=== PATIENT | female | born 1985 | race African-American/Black ===

== ENCOUNTER 2022-11-29 15:22 | Inpatient (IN) | payer OTHER, SELFPAY ==
[2022-11-29] VITALS (11 sets, daily range): BP systolic 95–121; BP diastolic 31–50; PULSE 67–98; RESP 11–18; TEMP 36.7–37.3; O2SAT 97–100; BMI 20.4
--- NOTE | ~2022-11-29 | XR_ITS ---
EXAMINATION: XR CHEST CLINICAL INFORMATION: Reason for Exam pain COMPARISON: None TECHNIQUE: 2 views of the chest FINDINGS: Lines and tubes: Radiopaque devices overlying the right midlung and upper lumbar spine per technologist report are external to the patient arise from patient overlying hooded sweatshirt. Clear lungs. No pleural effusion. No pneumothorax. Normal cardiomediastinal silhouette. XR/XR chest 2V IMPRESSION: * Clear lungs.
--- NOTE | ~2022-11-29 | CT_ITS ---
EXAMINATION: CT ABDOMEN AND PELVIS WITH CONTRAST CLINICAL INFORMATION: abd pain, ?lymphoma COMPARISON: None. TECHNIQUE: Multidetector volumetric imaging was performed from the superior aspect of the liver through the pubic symphysis following administration of 85 mL Omnipaque 300 intravenous contrast. Sagittal and coronal reformatted images were obtained on the technologist workstation.. This CT examination was performed using dose optimization techniques as appropriate, variously including the following: *Automated exposure control *Adjustment of mA and/or kV according to patient size (this includes techniques or standardized protocols for targeted exams where dose is matched to indication/reason for exam; i.e. extremities or head) *Use of iterative reconstruction technique DLP: 326 mGy-cm FINDINGS: LUNG BASES: The visualized lung bases are unremarkable. LIVER, GALLBLADDER, AND BILIARY TREE: The liver is normal in size, shape, and attenuation. No focal hepatic lesion or biliary ductal dilatation is present. The gallbladder is unremarkable with no evidence of radiopaque gallstones, gallbladder wall thickening, or obvious pericholecystic inflammatory changes. PANCREAS: Unremarkable. SPLEEN: Unremarkable. ADRENAL GLANDS: Unremarkable. KIDNEYS AND URETERS: The kidneys are normal in size, shape, and attenuation. No hydronephrosis, hydroureter, or calculi seen. No perinephric stranding. BLADDER: Unremarkable. GASTROINTESTINAL TRACT: The small and large bowel are unremarkable. The appendix is nonvisualized. ABDOMINAL WALL: No significant hernia is appreciated. LYMPHOVASCULAR STRUCTURES: Minimal atherosclerotic disease in the distal aorta. Incidental circumaortic left renal vein. I do not appreciate any bulky inguinal, bilateral pelvic sidewall, retroperitoneal, or mesenteric adenopathy PELVIC VISCERA: Physiologic changes OSSEOUS STRUCTURES: Unremarkable. CT/CT abdomen pelvis w IV con IMPRESSION: No acute intra-abdominal process seen.
--- NOTE | 2022-11-29 15:25 | ECG_ITS ---
Test Reason : chest pain Blood Pressure : / mmHG Vent. Rate : 096 BPM Atrial Rate : 096 BPM P-R Int : 130 ms QRS Dur : 074 ms QT Int : 350 ms P-R-T Axes : 058 070 035 degrees QTc Int : 442 ms Normal sinus rhythm Normal ECG No previous ECGs available Referred By: Michael Mead Electronically Signed By:NEFTALI PACHECO
--- NOTE | 2022-11-29 15:27 | ED_ITS ---
[facility] - General Adult General Chief complaint: Chest Pain Stated complaint: CP/SOB, elevated hr, vomiting, loss of weight Time Seen by Provider: 11/29/22 16:00 Source: patient Mode of arrival: ambulatory History of Present Illness HPI narrative: 37-year-old female who presents with known anemia history and denies any history of sickle cell or sickle cell trait and is unsure of any diagnosis of thalassemia, reports heavy menstrual bleeding her entire life but presents with chest pain/shortness of breath/elevated heart rate, nausea/vomiting for 2 weeks, loss of weight. Patient reports she has been tested for HIV previously and is agreeable for retesting today. Related Data Home Medications Medication Instructions Recorded Confirmed multivitamin 1 tab PO DAILY 11/29/22 11/29/22 Allergies Allergy/AdvReac Type Severity Reaction Status Date / Time No Known Allergies Allergy Verified 11/29/22 15:31 [No Known Allergies*] Review of Systems 2 Review of Systems: Pertinent positives and negatives as stated in HPI [facility] Past Medical History Source: nursing notes reviewed Social History Social History Alcohol intake: never Smoked in Last 30 Days: Yes Use of substances other than those prescribed or required for medical reasons: No Advance Directives: No Advance Directives Information Provided: Yes Patient : No Physical Exam ED Vital Signs: Vital Signs - 24 hr 11/29/22 15:27 11/29/22 16:01 11/29/22 17:49 Temperature 98.3 F 99.1 F 98.7 F Pulse Rate 98 83 72 Respiratory Rate 18 16 12 Blood Pressure 121/37 L 115/37 L 100/43 L Pulse Oximetry 97 98 Oxygen Delivery Method Room Air Room Air 11/29/22 18:06 Temperature 98.6 F Pulse Rate 78 Respiratory Rate 16 Blood Pressure 100/46 L Pulse Oximetry Oxygen Delivery Method BMI result Body Mass Index 20.4 VITAL SIGNS: Reviewed. GENERAL: Well developed, well nourished, in no acute distress. HEAD: Normocephalic/atraumatic EYES: PERRLA, EOMI, pale conjunctiva EARS: Ext canals without abnormality NOSE: Nares patent bilateral OROPHARYNX: no oral lesions noted, posterior pharynx clear, pale mucosa NECK: Supple, no adenopathy LUNGS: Normal breath sounds. No adventitious sounds or accessory muscle use. SpO2<98> CARDIOVASCULAR: Regular rate and rhythm without noted murmurs, no JVD or lower extremity edema. ABDOMEN: Soft, non-tender, non-distended with bowel sounds. MUSCULOSKELETAL: No tenderness, deformities, or effusions noted on gross inspection. EXTREMITIES: No cyanosis, clubbing or edema. SKIN: Inspection of the skin reveals no rashes NEUROLOGIC: Alert and oriented x 4. Strength and sensation to light touch were grossly intact x 4. Course Course Course Narrative: RME- 37 year old female presents for evaluation of shortness of breath, chest pain and dizziness. Symptoms started two weeks ago. Plan for cardiac workup. Medications Administered Discontinued Medications Generic Name Dose Route Start Last Admin Trade Name Freq PRN Reason Stop Dose Admin Sodium Chloride 100 mls @ 100 mls/hr 11/29/22 16:23 11/29/22 17:53 Ns IV 11/29/22 17:22 100 mls/hr ONCE ONE Administration Iohexol 100 ml 11/29/22 19:15 11/29/22 19:15 Iohexol 350 Mg/Ml 100 Ml Infus..Btl IV 11/29/22 19:16 85 ml ONCE ONE Administration Medical Decision Making Medical Decision Making MDM Narrative: 37-year-old female with history and clinical presentation, DDX: Acute blood loss anemia felt to be less likely as patient has no reports of recent heavy menstrual bleeding, underlying cell line disorder, although she does have noted leukopenia with the normocytic anemia which argues against the likelihood of sickle cell/thalassemia. all symptoms felt to be directly attributable to patient's profound anemia seen on lab work. I reviewed all investigations and hematologic indices are significant for leukopenia, RDW is significantly elevated but RBCs are depleted and anemia is noted to be normocytic. Absolute neutrophils -1.1 there are nucleated RBCs, absolute reticulocyte count 0.011. Coagulation studies are within normal limits with the exception PTT-22.4. Chemistry indices without BERNARD, potassium within normal limits but renal function is significantly attenuated with a creatinine- 1.36 and GFR -44. T bili-1.[address]-108 and troponin/BNP are grossly within normal limits. HCG is negative. Chest x-ray negative for infiltrate and otherwise my interpretation is in agreement with radiology's impression. LDH 6450, iron panel is not consistent with iron deficiency anemia, vitamin B12/folate is pending, HIV is negative. Patient consented and will receive 4 units, I am consulting with hematology/oncology. 1800: I discussed with Dr Vasquez, who recommends CT scan, and try to transfer to [facility] for suspected acute leukemia. 1914: I discussed the manual differential with Dr. Vasquez and communicated that there were no blasts seen but there was considerable irregularity to the erythrocyte line. She states that patient okay to stay [place] [facility] [place] and workup. 1920: I have discussed the case with inpatient hospitalist who accepts admission and understands that the CT scan of abdomen and pelvis is pending. I have discussed all results and findings with the patient to include are concerns for possible leukemia/lymphoma. Differential Diagnosis Differential Diagnoses: The differential diagnosis associated with the presentation includes Please see the discussion above Admission/Observation Consideration of admission/observation: Escalation of care including admission/observation considered Please see the discussion above Consult Healthcare Provider Management of the patient was discussed with: Skein Washer Please see the discussion above Lab Data MDM Lab Attestation statement: I reviewed the patient's lab results. Please see the discussion above 11/29/22 16:21 11/29/22 15:48 Labs: Lab Results 11/29/22 11/29/22 11/29/22 Range/Units 15:48 16:21 16:23 WBC 2.4 L (4.8-10.8) X10*3/uL RBC 1.21 L (4.20-5.50) X10*6/uL Hgb 3.7 L* 3.6 L* (12.0-16.0) g/dl Hct 11.7 L* 11.2 L* (37.0-47.0) % MCV 96.7 (80.0-98.0) fL MCH 30.6 (27.0-33.0) pg MCHC 31.6 (31.0-35.0) g/dl RDW 35.0 H (11.0-16.0) % Plt Count 171 (160-400) X10*3/uL MPV Not Reportable Immature Gran % (Auto) 1.2 H (0.0-0.4) % Neut % (Auto) 43.5 L (45-73) % Lymph % (Auto) 47.5 H (20-40) % [place] % (Auto) 4.9 (2-11) % Eos % (Auto) 2.5 (0-4) % Baso % (Auto) 0.4 (0-2) % Lymph # (Auto) 1.2 (1.2-4.9) X10*3/uL [place] # (Auto) 0.1 (0.1-1.2) X10*3/uL Eos # (Auto) 0.1 (0.0-0.4) X10*3/uL Baso # (Auto) 0.0 (0.0-0.2) X10*3/uL Abs Immat Gran (auto) 0.03 (0.00-0.03) X10*3/uL Absolute Neuts (auto) 1.1 L (2.0-8.3) x10*3/uL Absolute Nucleated RBC 0.050 H (0.0-0.012) X10*3/uL Nucleated RBC % (auto) 2.0 H (0.0-0.2) /100WBC Neutrophils % (Manual) 44 L (45-73) % Band Neutrophils % 0 L (3-5) % Lymphocytes % (Manual) 50 H (20-40) % Monocytes % (Manual) 2 (2-11) % Eosinophils % (Manual) 2 (0-4) % Basophils % (Manual) 2 (0-2) % Abs Neuts (Manual) 1.1 L (2.0-8.3) X10*3/uL Lymphocytes # (Manual) 1.2 (1.2-4.9) X10*3/uL Nucleated RBCs 1 H (0-0) /100WBC Platelet Estimate SLIGHTLY DECREASED (NORMAL) Plt Morphology Comment NORMAL RBC Morphology NOTED Polychromasia 1+ (0-2) /OIF Basophilic Stippling 1+ (0-2) /OIF Microcytosis 1+ (5-14) /OIF Tear Drop Cells 1+ (0-2) /OIF Ovalocytes 1+ (5-14) /OIF Schistocytes 1+ (0-2) /OIF Smear Tech's Comments VERIFIED Absolute Retic Cancelled 0.011 L Percent Retic Cancelled 1.0 Immature Retic Fraction Cancelled 25.3 H Retic Hgb Equivalent Cancelled 31.6 Haptoglobin Cancelled PT 12.8 (11.1-13.3) SEC INR 1.1 (0.9-1.1) APTT 22.4 L (26.0-36.4) SEC Sodium 136 (135-145) mmol/L Potassium 4.4 (3.3-5.1) mmol/L Chloride 105 (96-108) mmol/L Carbon Dioxide 21 L (22-29) mmol/L Anion Gap 14 (12-20) BUN 14 (9-16) mg/dL Creatinine 1.36 (0.5-1.4) mg/dL Estim Creat Clear Calc 42.7 Estimated GFR 44 Random Glucose 99 (60-115) mg/dL Calcium 10.1 (8.4-10.2) mg/dL Iron 220 H (30-160) mcg/dL TIBC 245 (228-428) mcg/dL % Saturation 90 H (15-50) % Unsat Iron Binding < 25 ug/dL Total Bilirubin 1.4 H (0.0-1.0) mg/dL AST 108 H (5-31) U/L ALT 24 (0-31) U/L Alkaline Phosphatase 37 L (39-117) U/L Lactate Dehydrogenase 6450 H (122-220) U/L Troponin I High Sens < 2.7 (<3.5-17.0) ng/L B-Natriuretic Peptide 11 (<100) pg/mL Total Protein 8.0 (6.5-8.0) g/dL Albumin 4.9 (3.5-5.0) g/dL Lipase 45 (8-78) U/L Beta HCG, Quant < 2 mIU/mL COVID-19 (DEYSI) Negative (Negative) COVID-19 Clin Com See Note HIV 1&2 Ab/P24 Ag 4thGn (Nonreactive) Influenza Type A (PCR) (Negative) Influenza Type B (PCR) (Negative) RSV RNA Qual (PCR) (Negative) SARS-CoV-2 RNA (RT-PCR) (Negative) Blood Type B Positive Antibody Screen NEGATIVE Crossmatch See Detail 11/29/22 Range/Units 18:48 WBC (4.8-10.8) X10*3/uL RBC (4.20-5.50) X10*6/uL Hgb (12.0-16.0) g/dl Hct (37.0-47.0) % MCV (80.0-98.0) fL MCH (27.0-33.0) pg MCHC (31.0-35.0) g/dl RDW (11.0-16.0) % Plt Count (160-400) X10*3/uL MPV Immature Gran % (Auto) (0.0-0.4) % Neut % (Auto) (45-73) % Lymph % (Auto) (20-40) % [place] % (Auto) (2-11) % Eos % (Auto) (0-4) % Baso % (Auto) (0-2) % Lymph # (Auto) (1.2-4.9) X10*3/uL [place] # (Auto) (0.1-1.2) X10*3/uL Eos # (Auto) (0.0-0.4) X10*3/uL Baso # (Auto) (0.0-0.2) X10*3/uL Abs Immat Gran (auto) (0.00-0.03) X10*3/uL Absolute Neuts (auto) (2.0-8.3) x10*3/uL Absolute Nucleated RBC (0.0-0.012) X10*3/uL Nucleated RBC % (auto) (0.0-0.2) /100WBC Neutrophils % (Manual) (45-73) % Band Neutrophils % (3-5) % Lymphocytes % (Manual) (20-40) % Monocytes % (Manual) (2-11) % Eosinophils % (Manual) (0-4) % Basophils % (Manual) (0-2) % Abs Neuts (Manual) (2.0-8.3) X10*3/uL Lymphocytes # (Manual) (1.2-4.9) X10*3/uL Nucleated RBCs (0-0) /100WBC Platelet Estimate (NORMAL) Plt Morphology Comment RBC Morphology Polychromasia /OIF Basophilic Stippling /OIF Microcytosis /OIF Tear Drop Cells /OIF Ovalocytes /OIF Schistocytes /OIF Smear Tech's Comments Absolute Retic Percent Retic Immature Retic Fraction Retic Hgb Equivalent Haptoglobin PT (11.1-13.3) SEC INR (0.9-1.1) APTT (26.0-36.4) SEC Sodium (135-145) mmol/L Potassium (3.3-5.1) mmol/L Chloride (96-108) mmol/L Carbon Dioxide (22-29) mmol/L Anion Gap (12-20) BUN (9-16) mg/dL Creatinine (0.5-1.4) mg/dL Estim Creat Clear Calc Estimated GFR Random Glucose (60-115) mg/dL Calcium (8.4-10.2) mg/dL Iron (30-160) mcg/dL TIBC (228-428) mcg/dL % Saturation (15-50) % Unsat Iron Binding ug/dL Total Bilirubin (0.0-1.0) mg/dL AST (5-31) U/L ALT (0-31) U/L Alkaline Phosphatase (39-117) U/L Lactate Dehydrogenase (122-220) U/L Troponin I High Sens (<3.5-17.0) ng/L B-Natriuretic Peptide (<100) pg/mL Total Protein (6.5-8.0) g/dL Albumin (3.5-5.0) g/dL Lipase (8-78) U/L Beta HCG, Quant mIU/mL COVID-19 (DEYSI) (Negative) COVID-19 Clin Com HIV 1&2 Ab/P24 Ag 4thGn Nonreactive (Nonreactive) Influenza Type A (PCR) NEGATIVE (Negative) Influenza Type B (PCR) NEGATIVE (Negative) RSV RNA Qual (PCR) NEGATIVE (Negative) SARS-CoV-2 RNA (RT-PCR) NEGATIVE (Negative) Blood Type Antibody Screen Crossmatch Independent Interpretation I performed an independent interpretation of an: EKG Interpretation: Normal sinus rhythm, HR-96, no STEMI, KS/QRS/QTC is within normal limits. Radiology Impression Discussion of test interpretation with radiology: I have reviewed the radiologist's reading. Radiologist Impression: Please see the discussion above External Record Review External record reviewed: Outpatient record, Prior outpatient labs, Prior outpatient radiology and Outside ED record Critical Care Time Critical Care Time Critical Care Time: Yes Total Critical Care Time: 45 Attestation: I personally attest to this time spent taking care of the patient. Discharge Plan Discharge Clinical Impression: Severe anemia Patient Disposition: Admitted As Inpatient Prescriptions: No Action multivitamin Tablet 1 tab PO DAILY
[2022-11-29 16:02] LABS: Basophils Percent Auto 0.4 % (0-2); SCAN SMEAR FLAG 1
[2022-11-29 16:04] LABS: Eosinophils Absolute Auto 0.1 X10*3/uL (0.0-0.4); Eosinophils Percent Auto 2.5 % (0-4); Imm Gran Abs Auto 0.03 X10*3/uL (0.00-0.03); Imm Gran Pct Auto 1.2 % (0.0-0.4); Lymphocytes Absolute Auto 1.2 X10*3/uL (1.2-4.9); Lymphocytes Percent Auto 47.5 % (20-40); MANUAL DIFF FLAG SCAN; Mean Corpuscular HGB Conc 31.6 g/dl (31.0-35.0); Mean Corpuscular Hemoglobin 30.6 pg (27.0-33.0); Mean Corpuscular Volume 96.7 fL (80.0-98.0); Monocytes Absolute Auto 0.1 X10*3/uL (0.1-1.2); Monocytes Percent Auto 4.9 % (2-11); Neutrophils Absolute Auto 1.1 x10*3/uL (2.0-8.3); Neutrophils Percent Auto 43.5 % (45-73); Platelet Count 171 X10*3/uL (160-400); Red Blood Count 1.21 X10*6/uL (4.20-5.50)
--- NOTE | 2022-11-29 16:04 | PC.NURSE ---
pt a&ox3, vss, nsr on the manager monitoring. pt comes in today d/t 09/25 non-radiating substernal chest pain, SOB, n/v, cough. sx started about a week ago but worsened last night into this morning. pt states that symptoms worsen upon movement/exertion/inspiration. pt showing no signs of WOB joie. pt able to speak in full, clear sentences w/o difficulty. lung sounds clear throughout. respirations even and unlabored. heart sounds regular and wnl. pt resting comfortably in no apparent distress. pt's children bedside. call robins placed within reach.
[2022-11-29 16:07] LABS: White Blood Count 2.4 X10*3/uL (4.8-10.8)
[2022-11-29 16:09] LABS: Alanine Aminotransferase 24 U/L (0-31); Albumin Level 4.9 g/dL (3.5-5.0); Alkaline Phosphatase 37 U/L (39-117); Anion Gap 14 (12-20); Aspartate Amino Transferase 108 U/L (5-31); Bilirubin Total 1.4 mg/dL (0.0-1.0); Blood Urea Nitrogen 14 mg/dL (9-16); Calcium 10.1 mg/dL (8.4-10.2); Carbon Dioxide 21 mmol/L (22-29); Chloride 105 mmol/L (96-108); Creatinine Clr Calc Pharmacy 42.7; Estimated Glomerular Filt Rate 44; Glucose Random 99 mg/dL (60-115); Hemoglobin 3.7 g/dl (12.0-16.0); Lipase 45 U/L (8-78); PLT ABN DIST 1; Potassium 4.4 mmol/L (3.3-5.1); Sodium 136 mmol/L (135-145)
[2022-11-29 16:10] LABS: Hematocrit 11.7 % (37.0-47.0)
[2022-11-29 16:15] LABS: B Type Natriuretic Peptide 11 pg/mL (<100)
[2022-11-29 16:17] LABS: Troponin-I High Sensitivity < 2.7 ng/L (<3.5-17.0)
[2022-11-29 16:28] LABS: SLIDE REVIEW VERIFIED
--- NOTE | 2022-11-29 16:31 | PC.NURSE ---
provider bedside w/ patient. 20gIV placed in the right AC w/o complications. repeat labs and type & screen sent to lab per provider order d/t original hgb & hct being low. pt aware on plan of care w/ the patient. pt resting comfortably in bed in no apparent distress. pt remains asymptomatic at this time aside from being pale compared to pt's baseline. respirations even and unlabored. call robins placed within reach.
[2022-11-29 16:33] LABS: COVID-19 Test Negative (Negative); IDNOW Serial# 08D9AD1C
[2022-11-29 16:45] LABS: HCG Quantitative < 2 mIU/mL
[2022-11-29 16:47] LABS: Hematocrit 11.2 % (37.0-47.0); Hemoglobin 3.6 g/dl (12.0-16.0)
[2022-11-29 16:54] LABS: INTERNATIONAL NORM RATIO 1.1 (0.9-1.1); Prothrombin Time 12.8 SEC (11.1-13.3)
[2022-11-29 16:58] LABS: Immature Retic Fraction 25.3 % (3.0-15.9); Retic HGB Equivalent 31.6 pg (30.0-35.0); Reticulocytes Absolute 0.011 X10*6/uL (0.026-0.095)
[2022-11-29 17:03] LABS: Partial Thromboplastin Time 22.4 SEC (26.0-36.4)
[2022-11-29 17:29] LABS: Iron 220 mcg/dL (30-160); Percent Iron Saturation 90 % (15-50); Total Iron Binding Capacity 245 mcg/dL (228-428); Unsaturated Iron Binding < 25 ug/dL
[2022-11-29 17:49] LABS: Lactate Dehydrogenase 6450 U/L (122-220)
--- NOTE | 2022-11-29 17:54 | PC.NURSE ---
vss prior to administering blood. blood product initially starting at 1751 per provider order. pt tolerating infusion well. will monitor pt for first 15min.
--- NOTE | 2022-11-29 17:57 | PHA.MEDREC ---
Pharmacy Consult ? Medication Reconciliation Pharmacy has completed the medication reconciliation. Patient only takes multivitamin. Oriana Holliday, WilberD
--- NOTE | 2022-11-29 18:06 | PC.NURSE ---
pt continues to tolerate first 15 min of transfusion. pt denies any SOB/nausea or any other sx at this time. vss and up to date. pt resting comfortably in no apparent distress. respirations even and unlabored.
[2022-11-29 18:40] LABS: Band Neutrophils Percent 0 % (3-5); Basophils Percent Manual 2 % (0-2); Eosinophils Percent Manual 2 % (0-4); Lymphocytes Absolute Manual 1.2 X10*3/uL (1.2-4.9); Lymphocytes Percent Manual 50 % (20-40); Monocytes Percent Manual 2 % (2-11); Neutrophils Absolute Manual 1.1 X10*3/uL (2.0-8.3); Neutrophils Percent Manual 44 % (45-73); Nucleated Red Blood Cells 1 /100WBC (0-0); RBC Morphology NOTED
[2022-11-29 18:41] LABS: Microcytosis 1+ (5-14) /OIF; Schistocytes 1+ (0-2) /OIF; Tear Drop Cells 1+ (0-2) /OIF
[2022-11-29 18:42] LABS: Ovalocytes 1+ (5-14) /OIF
[2022-11-29 18:43] LABS: Polychromasia 1+ (0-2) /OIF
[2022-11-29 18:46] LABS: Basophilic Stippling 1+ (0-2) /OIF
[2022-11-29 18:48] LABS: Platelet Estimate SLIGHTLY DECREASED (NORMAL); Platelet Morphology Comment NORMAL
--- NOTE | 2022-11-29 18:50 | PC.NURSE ---
20g IV placed in the right forearm w/o complications. pt currently going to CT. blood still transfusing.
[2022-11-29] MEDS: iohexoL 350 MG/ML 100 ML INFUS..BTL IV (19:15)
[2022-11-29 19:30] LABS: Influenza A PCR NEGATIVE (Negative); Influenza B PCR NEGATIVE (Negative); Resp Syncy Virus RNA Qual PCR NEGATIVE (Negative); SARS COV2 PCR INHOUSE NEGATIVE (Negative)
[2022-11-29 19:31] LABS: HIV AB/AG Nonreactive (Nonreactive); HIV Num 1 0.05 S/CO (0.00-0.99)
[2022-11-29 19:53] LABS: Folate 7.9 ng/mL (> or = 4.0); Vitamin B12 < 148 pg/mL (200-900)
--- NOTE | 2022-11-29 20:42 | PM.IMHP ---
History of Present Illness Date of Service: 11/29/22 Attending physician on admission: Corey Taylor Chief Complaint: sob, fatigue, weight loss 37-year-old female with history tubular adenoma, menorrhagia, chronic anemia with vitamin B12 deficiency and history of iron deficiency who is a current 1 cigarette per day smoker presents to the ED earlier today for evaluation shortness of breath both at rest and with exertion, chest pain, myalgias, fatigue, lightheadedness ongoing for 2 weeks. She states over the last week she has also been vomiting but denies any hematemesis. She denies any anorexia but states she has been hesitant to eat over the last week due to the vomiting and has lost 7 lb in 1 week. She denies any fevers, chills, abdominal pain, nausea, diarrhea, palpitations, cough, or syncope. On arrival, vital signs stable although blood pressure soft and admission without hypotension. Leukopenia present 2.4, RBC 1.21, H/H 3.6/11.2% with normal MCV and MCH. Platelets 171. No blasts present. Smear path review pending. Absolute reticulocyte count 0.011 with 25.3% immature reticulocyte fraction. Haptoglobin pending. LDH 6450. Renal function normal, electrolyte levels normal. Total bilirubin slightly elevated at 1.4 AST 108, ALT 24, alkaline phosphatase 37. Troponin below detectable limits. BNP 11. Vitamin B12 level below detectable limits. Folate normal at 7.9. Iron level elevated at 220, TIBC 245, 90% saturation . Ferritin level pending. Negative for COVID-19, RSV, influenza. HIV antigen nonreactive. Chest x-ray without abnormality. CT abdomen/pelvis negative for any acute intra abdominal process. EKG shows normal sinus rhythm, rate [address]/T-wave abnormality. In the ED is receiving 4 units packed red blood cells. Review of old records from [facility] show history of severe anemia requiring blood transfusions ([facility]) with subsequent outpatient follow-up with [facility] Hematology. Lab testing negative for von Willebrand'. She did have iron deficiency at that time but was unable to tolerate PO iron and severe vitamin b12 deficiency treated both IM and orally. She did have colonoscopy that showed nearly 4cm tubular adenoma which was removed and repeat colonoscopy in 2019 showed new tubular adenoma. She was advised to continue with surveillance colonoscopies but was lost to follow up. She is not a good historian regarding family cancer history. Review of Systems Review of Systems: General: No fevers, malaise. +weight loss, +fatigue HEENT: No blurred vision, diplopia. No sore throat, nasal congestion, rhinorrhea, sinus pain, ear pain Cardiovascular: +chest pain. No palpitations, or leg edema Respiratory: +sob, +bangura. No wheezing, cough GI: +constipation. No abdominal pain, nausea, vomiting, diarrhea, melena, hematochezia : No dysuria, hematuria, increased urinary frequency, decreased urinary output MSK: No myalgia, back pain Neuro: No headaches, weakness, paresthesias. +lightheadedness Skin: No rashes or lesions [facility] Medical History (Updated 11/29/22 @ 21:04 by LUIS ARMANDO Leach) Tubular adenoma of colon Menorrhagia History of anemia due to vitamin B12 deficiency Social History Alcohol intake: never Smoked in Last 30 Days: Yes Use of substances other than those prescribed or required for medical reasons: No Advance Directives: No Advance Directives Information Provided: Yes Patient : No Meds Allergies Allergy/AdvReac Type Severity Reaction Status Date / Time No Known Allergies Allergy Verified 11/29/22 15:31 [No Known Allergies*] Active Medications: Current Medications Acetaminophen (Acetaminophen 325 Mg Tablet) 650 mg PO Q6H PRN PRN Reason: Pain, Mild (Pain Scale 1-3) Docusate Sodium (Docusate Sodium 100 Mg Capsule) 100 mg PO DAILY PRN PRN Reason: Constipation Multivitamins/Vitamin C (Multivitamin Tablet) 1 tab PO DAILY [facility] Ondansetron HCl (Ondansetron Hcl 4 Mg/2 Ml Vial) 4 mg IVPUSH Q8H PRN PRN Reason: Nausea and Vomiting Sodium Chloride (0.9 % Sodium Chloride Flush 3 Ml Syringe) 3 [facility] Home Medications Medication Instructions Recorded Confirmed Last Taken Type multivitamin 1 tab PO DAILY 11/29/22 11/29/22 Unknown History Physical Exam Vital Signs and Narrative: Vital Signs: Last Vital Signs Temp 98.6 F 11/29/22 18:06 Pulse 78 11/29/22 18:06 Resp 16 11/29/22 18:06 BP 100/46 L 11/29/22 18:06 Pulse Ox 98 11/29/22 16:01 O2 Del Method Room Air 11/29/22 16:01 BMI result Body Mass Index 20.4 Results Labs 11/29/22 16:21 11/29/22 15:48 Labs: Laboratory Results - last 24 hr 11/29/22 11/29/22 11/29/22 15:48 16:21 16:23 MCV 96.7 MCH 30.6 MCHC 31.6 RDW 35.0 H Plt Count 171 MPV Not Reportable Immature Gran % (Auto) 1.2 H Neut % (Auto) 43.5 L Lymph % (Auto) 47.5 H [place] % (Auto) 4.9 Eos % (Auto) 2.5 Baso % (Auto) 0.4 Lymph # (Auto) 1.2 [place] # (Auto) 0.1 Eos # (Auto) 0.1 Baso # (Auto) 0.0 Abs Immat Gran (auto) 0.03 Absolute Neuts (auto) 1.1 L Absolute Nucleated RBC 0.050 H Nucleated RBC % (auto) 2.0 H Neutrophils % (Manual) 44 L Band Neutrophils % 0 L Lymphocytes % (Manual) 50 H Monocytes % (Manual) 2 Eosinophils % (Manual) 2 Basophils % (Manual) 2 Abs Neuts (Manual) 1.1 L Lymphocytes # (Manual) 1.2 Nucleated RBCs 1 H Platelet Estimate SLIGHTLY DECREASED Plt Morphology Comment NORMAL RBC Morphology NOTED Polychromasia 1+ (0-2) Basophilic Stippling 1+ (0-2) Microcytosis 1+ (5-14) Tear Drop Cells 1+ (0-2) Ovalocytes 1+ (5-14) Schistocytes 1+ (0-2) Smear Tech's Comments VERIFIED Absolute Retic Cancelled 0.011 L Percent Retic Cancelled 1.0 Immature Retic Fraction Cancelled 25.3 H Retic Hgb Equivalent Cancelled 31.6 Haptoglobin Cancelled PT 12.8 INR 1.1 APTT 22.4 L Anion Gap 14 Estim Creat Clear Calc 42.7 Estimated GFR 44 Random Glucose 99 Calcium 10.1 Iron 220 H TIBC 245 % Saturation 90 H Unsat Iron Binding < 25 Total Bilirubin 1.4 H AST 108 H ALT 24 Alkaline Phosphatase 37 L Lactate Dehydrogenase 6450 H B-Natriuretic Peptide 11 Total Protein 8.0 Albumin 4.9 Lipase 45 Vitamin B12 Folate Beta HCG, Quant < 2 COVID-19 (DEYSI) Negative COVID-19 Clin Com See Note HIV 1&2 Ab/P24 Ag 4thGn Influenza Type A (PCR) Influenza Type B (PCR) RSV RNA Qual (PCR) SARS-CoV-2 RNA (RT-PCR) Blood Type B Positive Antibody Screen NEGATIVE Crossmatch See Detail 11/29/22 18:48 MCV MCH MCHC RDW Plt Count MPV Immature Gran % (Auto) Neut % (Auto) Lymph % (Auto) [place] % (Auto) Eos % (Auto) Baso % (Auto) Lymph # (Auto) [place] # (Auto) Eos # (Auto) Baso # (Auto) Abs Immat Gran (auto) Absolute Neuts (auto) Absolute Nucleated RBC Nucleated RBC % (auto) Neutrophils % (Manual) Band Neutrophils % Lymphocytes % (Manual) Monocytes % (Manual) Eosinophils % (Manual) Basophils % (Manual) Abs Neuts (Manual) Lymphocytes # (Manual) Nucleated RBCs Platelet Estimate Plt Morphology Comment RBC Morphology Polychromasia Basophilic Stippling Microcytosis Tear Drop Cells Ovalocytes Schistocytes Smear Tech's Comments Absolute Retic Percent Retic Immature Retic Fraction Retic Hgb Equivalent Haptoglobin PT INR APTT Anion Gap Estim Creat Clear Calc Estimated GFR Random Glucose Calcium Iron TIBC % Saturation Unsat Iron Binding Total Bilirubin AST ALT Alkaline Phosphatase Lactate Dehydrogenase B-Natriuretic Peptide Total Protein Albumin Lipase Vitamin B12 < 148 L Folate 7.9 Beta HCG, Quant COVID-19 (DEYSI) COVID-19 Clin Com HIV 1&2 Ab/P24 Ag 4thGn Nonreactive Influenza Type A (PCR) NEGATIVE Influenza Type B (PCR) NEGATIVE RSV RNA Qual (PCR) NEGATIVE SARS-CoV-2 RNA (RT-PCR) NEGATIVE Blood Type Antibody Screen Crossmatch Imaging Radiologist's Impressions: Impressions Chest X-Ray 11/29/22 15:36 IMPRESSION: * Clear lungs. Abdomen/Pelvis CT 11/29/22 19:29 IMPRESSION: No acute intra-abdominal process seen. Assessment and Plan (1) Severe anemia: Status: Acute Plan 37-year-old female with history tubular adenoma, menorrhagia, chronic anemia with vitamin B12 deficiency and history of iron deficiency who is a current 1 cigarette per day smoker admitted for severe hemolytic anemia #Severe hemolytic anemia -Has history chronic vitamin B12 and iron deficiency. Previously following at [facility] hematology -Has chronic menorhhagia but no new acute bleeding. No iron deficiency, rather overloaded. Ferritin pending -LDH 6450, absolute reticulocyte count low -no blasts. CT abdomen/pelvis negative for evidence of lymphoma -Vitamin B12 deficient, defer to Hematology -hematology consult -transfuse 4 units packed red blood cells -follow CBC #Vomiting -etiology unclear, no hematemesis -ondansetron prn #Unintentional weight loss -acute- 7 pounds 1 week -suspect r/t vomiting -Cannot exclude malignany given clinical picture -Hematology consult # history tubular adenoma- >3cm, was on surveillance at [facility] GI -no iron deficiency anemia -consider Gastroenterology consult -outpt follow up DVT prophylaxis- scps, early ambulation Full code Patient requires inpatient stay at least 2 midnights for management of severe hemolytic anemia requiring multiple blood transfusions and expert consultation as well as close monitoring of blood counts and cardiac monitoring Time Spent With Patient Time: Total time managing care of this patient today ____ minutes. Quality Stroke Does the patient have a stroke diagnosis?: No VTE Prior VTE?: No VTE Risk Level:: Medical - moderate - high VTE Device Contraindication: Treatment Not Indicated VTE Drug Contraindication: N/A - Med Ordered
--- NOTE | 2022-11-29 21:33 | PC.NURSE ---
Took over care from Eladio Phoenix, pt a&o, no sob or chest pain at this time.pt tolerating blood transfusion well.
[2022-11-29 21:34] LABS: Ferritin 195 ng/mL (10-122)
--- NOTE | 2022-11-29 23:30 | PC.NURSE ---
This engineering writer assumed care of this Pt at 2300. Pt A&Ox4, sitting up on stretcher, receiving 2nd unit of blood. Pt denies any pain, SOB, CP, or palpitations, reports feeling better then when coming in . SpO2 98% on RA, lung sounds clear.
[2022-11-30] VITALS (8 sets, daily range): BP systolic 100–125; BP diastolic 53–68; PULSE 55–82; RESP 14–100; TEMP 36.3–36.8; O2SAT 100; BMI 21.1
[2022-11-30] MEDS: 0.9 % Sodium Chloride Flush 3 ML SYRINGE IVFLUSH ×2 (01:02→08:07)
--- NOTE | 2022-11-30 02:29 | PC.NURSE ---
3rd unit of blood infusing at this time. Pt denies any CP, SOB, or palpitations, Pt affebrile. Will continue with plan of care.
--- NOTE | 2022-11-30 02:52 | PC.NURSE ---
RN to RN report given to Killian, Pt will be transported to room 460, Pt aware of plan.
[2022-11-30 06:52] LABS: Basophils Percent Auto 0.5 % (0-2); Eosinophils Absolute Auto 0.1 X10*3/uL (0.0-0.4); Eosinophils Percent Auto 2.3 % (0-4); Hematocrit 23.9 % (37.0-47.0); Hemoglobin 7.9 g/dl (12.0-16.0); Imm Gran Abs Auto 0.04 X10*3/uL (0.00-0.03); Lymphocytes Absolute Auto 2.2 X10*3/uL (1.2-4.9); Lymphocytes Percent Auto 54.7 % (20-40); MANUAL DIFF FLAG SCAN; Mean Corpuscular HGB Conc 33.1 g/dl (31.0-35.0); Mean Corpuscular Hemoglobin 30.2 pg (27.0-33.0); Mean Corpuscular Volume 91.2 fL (80.0-98.0); Monocytes Absolute Auto 0.2 X10*3/uL (0.1-1.2); Monocytes Percent Auto 4.6 % (2-11); Neutrophils Absolute Auto 1.5 x10*3/uL (2.0-8.3); Neutrophils Percent Auto 36.9 % (45-73); Platelet Count 128 X10*3/uL (160-400); Red Blood Count 2.62 X10*6/uL (4.20-5.50); Red Cell Distribution Width 25.2 % (11.0-16.0); SCAN SMEAR FLAG 1
[2022-11-30 06:54] LABS: NRBC Pct Auto 2.8 /100WBC (0.0-0.2)
[2022-11-30 07:01] LABS: Anion Gap 13 (12-20); Blood Urea Nitrogen 17 mg/dL (9-16); Calcium 9.6 mg/dL (8.4-10.2); Carbon Dioxide 22 mmol/L (22-29); Chloride 103 mmol/L (96-108); Creatinine Clr Calc Pharmacy 49.2; Estimated Glomerular Filt Rate 52; Glucose Random 76 mg/dL (60-115); Potassium 4.2 mmol/L (3.3-5.1); Sodium 134 mmol/L (135-145)
[2022-11-30 08:02] LABS: SLIDE REVIEW VERIFIED
[2022-11-30] MEDS: Cyanocobalamin (Vitamin B-12) 1,000 MCG/ML VIAL 1000 MCG IM (08:07)
[2022-11-30] MEDS: Multivitamin TABLET 1 TAB PO (08:07)
[2022-11-30 09:10] LABS: Alanine Aminotransferase 24 U/L (0-31); Albumin Level 4.6 g/dL (3.5-5.0); Alkaline Phosphatase 37 U/L (39-117); Aspartate Amino Transferase 145 U/L (5-31); Bilirubin Direct 0.6 mg/dL (0.0-0.5); Bilirubin Total 4.2 mg/dL (0.0-1.0); Lactate Dehydrogenase 6224 U/L (122-220); Total Protein 7.4 g/dL (6.5-8.0)
--- NOTE | 2022-11-30 09:23 | MHC.CM.PN ---
Addendum entered by Shayy Lopez 11/30/22 09:41: Verified that PCP is Jay Jay Stuart. Original Note: Pt admitted with dx severe symptomatic anemia. Pt lives at home with her 2 sons (17 & 6, both with disabilities). Pt independent/self-care. D/C plan is to return home self-care. Pt may have a ride depending on the time/day vs lyft. HCP completed with pt today, now on file. PCP: Pt states she goes to [facility] in [place] and they keep changing her MD, so she is not sure which PCP she has. Call out to [facility] to verify.
--- NOTE | 2022-11-30 11:38 | P.DS_ITS ---
DS: Providers Provider Date of Service: 11/30/22 Date of admission: 11/29/22 20:35 Primary care physician: Unknown Physician Consults: 11/29/22 20:35 Consult to Hematology / Oncology Routine Consulting Provider: Aminah Vasquez Reason for consultation: severe hemolytic anemia DS: Diagnosis Discharge Diagnosis (1) Severe anemia: Status: Acute DS: Summary Hospital Course Hospital Course: from initial hpi: 37-year-old female with history tubular adenoma, menorrhagia, chronic anemia with vitamin B12 deficiency and history of iron deficiency who is a current 1 cigarette per day smoker presents to the ED earlier today for evaluation shortness of breath both at rest and with exertion, chest pain, myalgias, fatigue, lightheadedness ongoing for 2 weeks. She states over the last week she has also been vomiting but denies any hematemesis. She denies any anorexia but states she has been hesitant to eat over the last week due to the vomiting and has lost 7 lb in 1 week. She denies any fevers, chills, abdominal pain, nausea, diarrhea, palpitations, cough, or syncope. On arrival, vital signs stable although blood pressure soft and admission without hypotension. Leukopenia present 2.4, RBC 1.21, H/H 3.6/11.2% with normal MCV and MCH. Platelets 171. No blasts present. Smear path review pending. Absolute reticulocyte count 0.011 with 25.3% immature reticulocyte fraction. Haptoglobin pending. LDH 6450. Renal function normal, electrolyte levels normal. Total bilirubin slightly elevated at 1.4 AST 108, ALT 24, alkaline phosphatase 37. Troponin below detectable limits. BNP 11. Vitamin B12 level below detectable limits. Folate normal at 7.9. Iron level elevated at 220, TIBC 245, 90% saturation . Ferritin level pending. Negative for COVID-19, RSV, influenza. HIV antigen no nreactive. Chest x-ray without abnormality. CT abdomen/pelvis negative for any acute intra abdominal process. EKG shows normal sinus rhythm, rate [address]/T-wave abnormality. In the ED is receiving 4 units packed red blood cells. Review of old records from [facility] show history of severe anemia requiring blood transfusions ([facility]) with subsequent outpatient follow-up with [facility] tolasimy. Lab testing negative for von Willebrand'. She did have iron deficiency at that time but was unable to tolerate PO iron and severe vitamin b12 deficiency treated both IM and orally. She did have colonoscopy that showed nearly 4cm tubular adenoma which was removed and repeat colonoscopy in 2019 showed new tubular adenoma. She was advised to continue with surveillance colonoscopies but was lost to follow up. She is not a good historian regarding family cancer history. hospital course: Patient was admitted for severe anemia, likely acute on chronic due to severe B12 deficiency. She received 4 units PRBC and hemoglobin improved appropriately. She will be discharged on oral B12 1000 mcg daily as well as IM B12 1000 mcg daily for 1 week and then weekly for 1 month and then monthly in definitely. She will also follow-up with Hematology as outpatient. Patient is feeling better will be discharged home. Time Spent with Patient Time attestation: Total time managing care of this patient today ____ minutes. Discharge coordination time: Greater than 30 minutes Quality: Safe Use of Opioids Does Pt have an Active Cancer Diagnosis on the Problem List?: No Quality: Stroke Does the patient have a stroke diagnosis?: No Physical Exam Vital Signs: Vital Signs: Last Vital Signs Temp 97.4 F 11/30/22 07:35 Pulse 65 11/30/22 07:35 Resp 18 11/30/22 07:35 BP 125/57 L 11/30/22 07:35 Pulse Ox 100 11/30/22 07:35 O2 Del Method Room Air 11/30/22 07:35 BMI result Body Mass Index 21.1 General: AO X 3, no acute distress Resp: CTA bilateral, no accessory muscles used CVS: S1,S2,RRR GI: soft, non tender, non distended Neuro: motor grossly intact, alert Psych: appropriate affect, appropriate insight DS: Data Data Completed and Pending Labs on day of discharge: Laboratory Results - last 24 hr 11/29/22 11/29/22 11/29/22 15:48 16:21 16:23 WBC 2.4 L RBC 1.21 L Hgb 3.7 L* 3.6 L* Hct 11.7 L* 11.2 L* MCV 96.7 MCH 30.6 MCHC 31.6 RDW 35.0 H Plt Count 171 MPV Not Reportable Immature Gran % (Auto) 1.2 H Neut % (Auto) 43.5 L Lymph % (Auto) 47.5 H [place] % (Auto) 4.9 Eos % (Auto) 2.5 Baso % (Auto) 0.4 Lymph # (Auto) 1.2 [place] # (Auto) 0.1 Eos # (Auto) 0.1 Baso # (Auto) 0.0 Abs Immat Gran (auto) 0.03 Absolute Neuts (auto) 1.1 L Absolute Nucleated RBC 0.050 H Nucleated RBC % (auto) 2.0 H Neutrophils % (Manual) 44 L Band Neutrophils % 0 L Lymphocytes % (Manual) 50 H Monocytes % (Manual) 2 Eosinophils % (Manual) 2 Basophils % (Manual) 2 Abs Neuts (Manual) 1.1 L Lymphocytes # (Manual) 1.2 Nucleated RBCs 1 H Platelet Estimate SLIGHTLY DECREASED Plt Morphology Comment NORMAL RBC Morphology NOTED Polychromasia 1+ (0-2) Basophilic Stippling 1+ (0-2) Microcytosis 1+ (5-14) Tear Drop Cells 1+ (0-2) Ovalocytes 1+ (5-14) Schistocytes 1+ (0-2) Smear Tech's Comments VERIFIED Absolute Retic Cancelled 0.011 L Percent Retic Cancelled 1.0 Immature Retic Fraction Cancelled 25.3 H Retic Hgb Equivalent Cancelled 31.6 Haptoglobin Cancelled PT 12.8 INR 1.1 APTT 22.4 L Sodium 136 Potassium 4.4 Chloride 105 Carbon Dioxide 21 L Anion Gap 14 BUN 14 Creatinine 1.36 Estim Creat Clear Calc 42.7 Estimated GFR 44 Random Glucose 99 Calcium 10.1 Iron 220 H TIBC 245 % Saturation 90 H Unsat Iron Binding < 25 Ferritin 195 H Total Bilirubin 1.4 H Direct Bilirubin AST 108 H ALT 24 Alkaline Phosphatase 37 L Lactate Dehydrogenase 6450 H Troponin I High Sens < 2.7 B-Natriuretic Peptide 11 Total Protein 8.0 Albumin 4.9 Lipase 45 Vitamin B12 Folate Beta HCG, Quant < 2 COVID-19 (DEYSI) Negative COVID-19 Clin Com See Note HIV 1&2 Ab/P24 Ag 4thGn Influenza Type A (PCR) Influenza Type B (PCR) RSV RNA Qual (PCR) SARS-CoV-2 RNA (RT-PCR) Blood Type B Positive Antibody Screen NEGATIVE DEANNA, Polyspecific NEGATIVE Positive DEANNA Work-up TNP Crossmatch See Detail 11/29/22 11/30/22 18:48 06:15 WBC 4.0 L RBC 2.62 L D Hgb 7.9 L D Hct 23.9 L D MCV 91.2 D MCH 30.2 MCHC 33.1 RDW 25.2 H Plt Count 128 L D MPV Not Reportable Immature Gran % (Auto) 1.0 H Neut % (Auto) 36.9 L Lymph % (Auto) 54.7 H [place] % (Auto) 4.6 Eos % (Auto) 2.3 Baso % (Auto) 0.5 Lymph # (Auto) 2.2 [place] # (Auto) 0.2 Eos # (Auto) 0.1 Baso # (Auto) 0.0 Abs Immat Gran (auto) 0.04 H Absolute Neuts (auto) 1.5 L Absolute Nucleated RBC 0.110 H Nucleated RBC % (auto) 2.8 H Neutrophils % (Manual) Band Neutrophils % Lymphocytes % (Manual) Monocytes % (Manual) Eosinophils % (Manual) Basophils % (Manual) Abs Neuts (Manual) Lymphocytes # (Manual) Nucleated RBCs Platelet Estimate Plt Morphology Comment RBC Morphology Polychromasia Basophilic Stippling Microcytosis Tear Drop Cells Ovalocytes Schistocytes Smear Tech's Comments VERIFIED Absolute Retic Percent Retic Immature Retic Fraction Retic Hgb Equivalent Haptoglobin PT INR APTT Sodium 134 L Potassium 4.2 Chloride 103 Carbon Dioxide 22 Anion Gap 13 BUN 17 H Creatinine 1.18 Estim Creat Clear Calc 49.2 Estimated GFR 52 Random Glucose 76 Calcium 9.6 Iron TIBC % Saturation Unsat Iron Binding Ferritin Total Bilirubin 4.2 H Direct Bilirubin 0.6 H AST 145 H ALT 24 Alkaline Phosphatase 37 L Lactate Dehydrogenase 6224 H Troponin I High Sens B-Natriuretic Peptide Total Protein 7.4 Albumin 4.6 Lipase Vitamin B12 < 148 L Folate 7.9 Beta HCG, Quant COVID-19 (DEYSI) COVID-19 Clin Com HIV 1&2 Ab/P24 Ag 4thGn Nonreactive Influenza Type A (PCR) NEGATIVE Influenza Type B (PCR) NEGATIVE RSV RNA Qual (PCR) NEGATIVE SARS-CoV-2 RNA (RT-PCR) NEGATIVE Blood Type Antibody Screen DEANNA, Polyspecific Cancelled Positive DEANNA Work-up Cancelled Crossmatch Discharge Plan Discharge Anticipated Discharge Date/Time: 11/30/22 11:28 Patient Disposition: Home, Self-Care Discharge Diagnosis: b12 deficiency anemia Referrals: Aminah Vasquez MD [Physician] - 1 Week Physician,Unknown J [Primary Care Provider] - 1 Week Discharge Medications: New cyanocobalamin (vitamin B-12) 1,000 mcg capsule 1,000 mcg PO DAILY Qty: 30 0RF cyanocobalamin (vitamin B-12) 1,000 mcg/mL solution 1,000 mcg IM DAILY Qty: 25 0RF Rx Instructions: 1000mcg IM daily for 1 week, then weekly for 1 month, then monthly. alcohol swabs [Alcohol Pads] Pads, Medicated 1 pad topical DAILY Qty: 200 0RF (DME) needle (disp) 18 G 18 gauge x 1 1/4 needle See Rx Instructions .Route Qty: 100 0RF Rx Instructions: As directed (DME) Syringe 3cc/25Gx1 3 mL 25 gauge x 1 syringe See Rx Instructions .Route Qty: 100 0RF Rx Instructions: As directed (DME) BD Regular Bevel [place] 18 gauge x 1 1/2 needle See Rx Instructions .Route Qty: 100 0RF Rx Instructions: As directed Discontinued multivitamin Tablet 1 tab PO DAILY Discharge Orders: Discharge Order (Routine); Ordered 11/30/22 Ordered By: Salvador Johnston Diet: Advance to usual diet Activity on Discharge: As tolerated Stand Alone Forms: Patient Portal Discharge page Care Plan Goals: recovery Health Concerns: b12 deficiency Plan of Treatment: b12 oral and IM as prescribed, follow up with hematology Assessment: see above
--- NOTE | 2022-11-30 12:15 | MHC.CM.PN ---
Pt is medically cleared for D/C home self-care, pts friend Rebecca ([phone]) will transport pt home.
[2022-11-30 13:23] LABS: Haptoglobin <10 MG/DL ((30-200))
== END 2022-11-30 13:39 | disposition home or self-care (01) | DRG 663 ==
LOC: HO.ED 19:47 → HO.EDOVER 20:45 → HO.IMC 11-30 01:46
PROVIDERS: Internal Medicine; Physician Assistant; Admitting Provider Physician Assistant; Emergency Provider Student in an Organized Health Care Education/Training Program; PCP Internal Medicine; Visit Provider Internal Medicine
DX: D51.9 Vitamin B12 deficiency anemia, unspecified (principal); F17.210 Nicotine dependence, cigarettes, uncomplicated; Z20.822 Contact with and (suspected) exposure to COVID-19; Z71.6 Tobacco abuse counseling; Z86.010 Personal history of colon polyps
CPT/HCPCS: 0241U; 36415; 71046; 74177; 80048; 80053; 80076; 82607; 82728; 82746; 83010; 83540; 83615; 83690; 83880; 84484; 84702; 85007; 85014; 85018; 85025; 85045; 85610; 85730; 86850; 86880; 86900; 86901; 86923; 87389; 87635; 93005; 99285; P9016; Q9967

== ENCOUNTER → 2022-11-29 20:35 | Outpatient (BNV) | payer OTHER, SELFPAY | PROVIDERS: Admitting Provider Physician Assistant; Emergency Provider Student in an Organized Health Care Education/Training Program; Visit Provider Physician Assistant | DX: D64.9 Anemia, unspecified (principal) | CPT/HCPCS: 99223; 99239 ==

== ENCOUNTER → 2022-12-05 12:30 | Outpatient (BNV) | payer OTHER, SELFPAY | PROVIDERS: PCP Internal Medicine; Visit Provider Internal Medicine | DX: D51.9 Vitamin B12 deficiency anemia, unspecified (principal) | CPT/HCPCS: 99204 ==